=== PATIENT | female | born 1965 | race Caucasian/White ===

== ENCOUNTER → 2017-11-24 14:23 | Outpatient (CLI) | payer OTHER, SELFPAY ==
--- NOTE | 2017-11-24 | DI.MRI.S_ITS ---
PROCEDURE: MR SHOULDER LT WO CON INDICATIONS: LEFT SHOULDER PAIN TECHNIQUE: Noncontrast oblique coronal T2 fast spin echo with fat saturation, oblique sagittal T1 spin echo and T2 fast spin echo with fat saturation, axial T1 spin echo and T2 fast spin echo with fat saturation through the shoulder. COMPARISON: None. FINDINGS: Image quality: Motion artifact is present on several imaging sequences. Rotator cuff: There is moderate to high grade articular surface partial thickness tearing involving the anterior distal supraspinatus tendon with corresponding tendinopathy. Low-grade partial-thickness tearing and tendinopathy of the infraspinatus tendon is present. There is subscapularis tendinopathy. The teres minor tendon is intact. There is no significant atrophy of the rotator cuff muscles. Bones and bursae: There is no acute fracture, dislocation, or suspicious osseous lesion evident involving the osseous structures of the shoulder. There are moderate degenerative changes of the glenohumeral and acromial clavicular joints. There is a moderate-sized glenohumeral joint effusion with possible small intra-articular joint bodies along the inferior margin of the joint. A minimal amount of fluid is contained within the subacromial subdeltoid bursa. Capsule and soft tissues: Evaluation of the labrum and glenohumeral ligaments is difficult without intra-articular contrast. However, there appears to be near circumferential tearing of the labrum that is most appreciated along the posterior and superior margins of the labrum. No large paralabral cysts are evident. The long head of the biceps tendon is normally positioned within the bicipital groove, but is noted to be edematous and thickened along its intra-articular course. No definite acute injuries of the glenohumeral ligaments are evident. IMPRESSION: 1. Moderate to high grade articular surface partial thickness tear of the distal supraspinatus tendon. 2. Low-grade partial-thickness tear and tendinopathy of the infraspinatus tendon. There is subscapularis tendinopathy. 3. Near circumferential tearing of the labrum is more pronounced on the posterior superior labrum. 4. Moderate tendinopathy and possible intrasubstance partial-thickness tearing of the intra-articular portion of the biceps tendon. 5. Moderate degenerative changes of the glenohumeral and acromioclavicular joints with associated joint effusion. Dictated by: Ken Booker M.D. on 11/24/2017 at 15:04 Approved by: Ken Booker M.D. on 11/24/2017 at 15:10
== END ==
PROVIDERS: PCP Family Medicine; Visit Provider Family Medicine
DX: S46.012A Strain of muscle(s) and tendon(s) of the rotator cuff of left shoulder, initial encounter (principal); S43.402A Unspecified sprain of left shoulder joint, initial encounter; M19.012 Primary osteoarthritis, left shoulder; M25.512 Pain in left shoulder; M25.412 Effusion, left shoulder
CPT/HCPCS: 73221

== ENCOUNTER → 2017-12-19 18:34 | Outpatient (CLI) | payer OTHER, SELFPAY ==
--- NOTE | 2017-12-19 18:36 | DI.MRI.S_ITS ---
PROCEDURE: MR KNEE LT WO CON INDICATIONS: LEFT KNEE PAIN TECHNIQUE: Noncontrast sagittal PD fast spin echo and T2 fast spin echo with fat saturation, sagittal 3-D FLASH with fat saturation; coronal T1 spin echo and PD fast spin echo with fat saturation, and axial PD fast spin echo with fat saturation through the knee. COMPARISON: None. FINDINGS: Image quality: Excellent. Menisci: There is a high-grade near-complete focal tear of the posterior horn of the medial meniscus at its junction with the meniscal root ligament. There is associated mild peripheral extrusion of the medial meniscus. A horizontally oriented longitudinal tear is also demonstrated within the posterior horn and body involving the free edge and inferior articular surface. There is blunting along the free edge of the body of the lateral meniscus consistent with a small radial tear. Cruciate ligaments: The anterior and posterior cruciate ligaments appear intact. Medial structures: The medial collateral ligament appears mildly attenuated in signal with mild edema along the medial capsule. The findings likely represent reactive changes but the imaging appearance may also reflect a mild grade 1 sprain of the MCL. The semimembranosus tendon insertions are attenuated distally with mild edema compatible with a mild strain. Visualized portions of the pes anserinus tendons demonstrate peritendinous edema without discrete bursal fluid collections. Lateral structures: The lateral collateral ligament, long and short heads of the biceps femoris tendon appear intact. The popliteus tendon appears intact. Iliotibial band appears normal. Anterior structures: The quadriceps and patellar tendons appear intact. There is slight lateral shift of the patella. No femoral trochlear dysplasia or ventral trochlear prominence. No edema in the infrapatellar fat pad. Bones and cartilage: No bone marrow contusions or fractures. Tricompartmental osteophytosis is present. There is mild to moderate cartilage thinning in the medial compartment with moderate partial-thickness cartilage loss along the medial femoral condyle. In the lateral compartment, there is mild superficial chondral fraying. In the patellofemoral compartment, there is moderate overall cartilage thinning with chondral fissuring including an osteochondral lesion along the lateral trochlea associated with subchondral edema. Small foci of subchondral edema are also demonstrated along the patella. Joint space: There is a small to moderate joint effusion. No definite joint bodies. There is a probable focus of fat anterior to the distal ACL. No Gaines's cyst. Normal appearing synovial plicae are incidentally noted. IMPRESSION: 1. Complex tearing of the medial meniscus including a-grade focal tear of the posterior horn at its junction with the meniscal root ligament. Horizontally oriented longitudinal tear and is also demonstrated. There is a small radial tear in the lateral meniscus. 2. 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 3. Small to moderate size joint effusion. 4. Mild edema along the medial capsule likely represents reactive changes versus sequela of a mild grade 1 sprain of the MCL. Dictated by: Rainer Schuler M.D. on 12/20/2017 at 11:10 Approved by: Rainer Schuler M.D. on 12/20/2017 at 11:25
== END ==
PROVIDERS: PCP Family Medicine; Visit Provider Family Medicine
DX: M25.562 Pain in left knee (principal); S83.232A Complex tear of medial meniscus, current injury, left knee, initial encounter; S83.282A Other tear of lateral meniscus, current injury, left knee, initial encounter; M17.12 Unilateral primary osteoarthritis, left knee; M25.462 Effusion, left knee
CPT/HCPCS: 73721